=== PATIENT | female | born 1995 | race Caucasian/White ===

== ENCOUNTER 2017-07-31 07:51 | Emergency (ER) | payer BC, OTHER ==
[~2017-07-31] VITALS: Ht 177.8 cm; Wt 89.9 kg
[2017-07-31 07:55] VITALS: TEMP 36.6; O2SAT 94; Ht 177.8 cm; Wt 89.9 kg
[2017-07-31] MEDS ORDERED: GI COCKTAIL PO STA (08:10)
[2017-07-31] MEDS ORDERED: ONDANSETRON 4MG OD TAB PO STA (08:10)
--- NOTE | 2017-07-31 08:10 | EMERGENCY ROOM VISIT NOTE ---
History Report prepared by Veraibfelipe: Mabel Duvall Under the Supervision of: Dr. Avel Marquez M.D. 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 Positive diarrhea, lower abdominal pain. Negative back pain, recent sick contacts. The patient notes she ate aiyana lettuce in a salad this past weekend at [facility] and started vomiting shortly after eating the salad. She also reports she is currently going through a "hard break up" and has been very anxious and tearful ever since. She takes 20 mg of Celexa for a history of anxiety. Her LMP was 3 weeks ago and normal. She occasionally drinks alcohol and smokes cigarettes but denies any illegal drug use. She has never undergone abdominal surgery before. Source of History: patient Onset: 3 days SOUND RECORDING TECHNICIAN Position: abdomen Timing: other (persistent) Associated Symptoms: + abdominal pain, + diarrhea, No back pain Review of Systems See HPI for pertinent positives and negatives. A total of ten systems were reviewed and were otherwise negative. Past Medical & Surgical Medical Problems: (1) Anxiety (2) Hypothyroidism Surgical Problems: (1) History of wisdom tooth extraction Social History Smoking Status: Never Smoker Alcohol Use: occasionally Drug Use: none Marital Status: single Housing Status: lives with family Occupation Status: employed Current/Historical Medications Scheduled Citalopram Hydrobromide (Celexa), 1 TAB PO DAILY Ethinyl Estrad/Desogestrel (Apri), 1 TAB PO DAILY Levothyroxine Sodium (Synthroid), 20 MCG PO DAILY Allergies Coded Allergies: No Known Allergies (Unverified , 07/31/17) Physical Exam Vital Signs Date Time Temp Pulse Resp B/P (MAP) Pulse Ox O2 Delivery O2 Flow Rate FiO2 07/31/17 10:14 88 108/68 07/31/17 07:55 36.6 79 20 110/70 94 Room Air Physical Exam GENERAL: Awake, alert, tearful, well-appearing, NAD HENT: Normocephalic, atraumatic. EYES: Normal conjunctiva. Sclera non-icteric. PERRL. No anisocoria. NECK: Supple. No nuchal rigidity. FROM. RESPIRATORY: CTAB, no rhonchi, wheezing, crackles CARDIAC: RRR, no MRG ABDOMEN: Soft, NTND, BS+ Negative Edward's sign, negative obturator's, negative psoas, non-peritonitic abdomen. MSK: No chest wall TTP, no LE edema, no CVA TTP. NEURO: GCS 15, CN 2-12 intact, moves all 4s on command SKIN: No rash or jaundice noted. Medical Decision & Procedures Laboratory Results Test 07/31/17 09:25 Urine Color DK YELLOW Urine Appearance CLOUDY (CLEAR) Urine pH 5.0 (4.5-7.5) Urine Specific Art 1.033 (1.000-1.030) Urine Protein NEG (NEG) Urine Glucose (UA) NEG (NEG) Urine Ketones 2+ (NEG) Urine Occult Blood NEG (NEG) Urine Nitrite NEG (NEG) Urine Bilirubin NEG (NEG) Urine Urobilinogen NEG (NEG) Urine Leukocyte Esterase TRACE (NEG) Urine WBC (Auto) 5-10 /hpf (0-5) Urine RBC (Auto) 0-4 /hpf (0-4) Urine Hyaline Casts (Auto) 1-5 /lpf (0-5) Urine Epithelial Cells (Auto) >30 /lpf (0-5) Urine Bacteria (Auto) 1+ (NEG) Urine Renal Epithelial Cells 0-5 /lpf (0-5) Urine Crystals AMORPHOUS SEDIMENT (NONE Urine Pathogenic Casts /lpf (0) Urine Test NEG (NEG) Medications Administered Medications (Trade) Dose Ordered Sig/Kristin Route Start Time Stop Time Status Last Admin Dose Admin Ondansetron HCl (Zofran Odt) 4 mg NOW STAT PO 07/31/17 08:10 07/31/17 08:14 DC 07/31/17 08:23 4 MG Famotidine (Pepcid Tab) 20 mg NOW ONCE PO 07/31/17 08:15 07/31/17 08:16 DC 07/31/17 08:39 20 MG Al Hydroxide/Mg Hydroxide (Maalox Susp) 30 ml STK-MED ONCE .ROUTE 07/31/17 08:19 07/31/17 08:20 DC 07/31/17 08:38 30 ML Lidocaine HCl (Viscous Lidocaine 2% Soln) 20 ml STK-MED ONCE .ROUTE 07/31/17 08:19 07/31/17 08:20 DC 07/31/17 08:39 20 ML Sodium Chloride 500 ml @ 999 mls/hr Q31M STAT IV 07/31/17 09:22 07/31/17 09:52 DC 07/31/17 09:35 999 MLS/HR Metoclopramide HCl (Reglan Inj) 10 mg NOW STAT IV. 07/31/17 09:22 07/31/17 09:24 DC 07/31/17 09:36 10 MG ED Course 0802: The patient was evaluated in room B5. A complete history and physical exam was performed. 0830: I reevaluated the patient. I discussed her results and discharge instructions and she verbalized complete understanding and agreement. 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 Triage Nursing notes reviewed. The patient's presentation and history were concerning for vomiting. Etiologies such as gastroenteritis, food borne illness, infections, appendicitis , diverticulitis, inflammatory bowel disease, obstruction, GI bleed, biliary pathology, as well as others were entertained. Nursing notes reviewed. Ancillary studies and prior records reviewed. Patient was seen and evaluated the bedside. Patient did present with 3 days of nausea with associated vomiting. She states that she has been preoccupied she has been going through a tough relationship breakup. Patient denies any abdominal discomfort just nausea. Patient denies any trauma. Last menstrual period 3 weeks ago. Patient denies any dysuria. On exam the patient is well- appearing albeit tearful. The patient has no CVA TTP and has a nonfocal non- surgical abdomen. Patient has no discomfort whatsoever. The patient did have a urinalysis, urine test, the patient was given medications for symptom control. Patient still had some mild nausea. An IV line was started and the patient was given some additional Reglan. Urine test was negative. Patient's UA question for infection. Given the patient's nausea and vomiting will we will treat empirically. Patient was given Rocephin and given a prescription for Keflex. The patient did relate that she may have eaten some aiyana lettuce and in light of the recent E. coli outbreak the patient would likely be more sick and would likely have associated diarrhea. She has only had one episode of this. Patient has had a recent bowel movement less likely an obstruction. Patient has a nonsurgical abdomen and I do not believe that she requires blood work or further imaging at this time. She has had a recent bowel movement the patient denies any urinary symptoms. Furthermore, the patient is afebrile with stable vital signs. Patient was told to follow-up with her PCP if she does continue to be anxious. Patient was feeling improved upon reassessment. Tolerate p.o. without issue. She was given medications as an outpatient told to consider a bland diet. Patient was given strict follow-up, discharge, and return precautions. All questions were answered. Patient was deemed suitable for outpatient follow-up at this time. Patient agreed with the plan of care and was safely discharged home. Medication Reconcilliation Current Medication List: was personally reviewed by me Blood Pressure Screening Patient's blood pressure: Normal blood pressure Blood pressure disposition: Did not require urgent referral Impression Primary Impression: Nausea & vomiting Additional Impressions: Anxiety UTI (urinary tract infection) Scribe Attestation The scribe's documentation has been prepared under my direction and personally reviewed by me in its entirety. I confirm that the note above accurately reflects all work, treatment, procedures, and medical decision making performed by me. Departure Information Dispostion Home / Self-Care Prescriptions Cephalexin (KEFLEX) 500 Mg Cap 1 CAP PO BID for 7 Days, #14 CAP Prov: Avel Marquez M.D. 07/31/17 Patient Instructions ED Nausea Vomiting, My [facility] Additional Instructions Please return to the emergency department if you have worsening or recurrent symptoms not amenable to at-home treatment. Please call for a follow-up appointment with her primary care physician. Please take your medications as prescribed. If you have other concerns and/or complaints please feel free to also call your primary care physician's office or return the ED for further evaluation, management, and treatment. Please follow-up with your primary care physician for further discuss things like anxiety. You may take 800 mg Ibuprofen every 6 hours as needed for pain/fever with food unless told by your physician not to take NSAIDs. You may take tylenol 1000 mg every 6 hours as needed for pain/fever unless told by your physician to not take it or have liver problems. You may take motrin and tylenol separately or at the same time. Take your medications as prescribed. If taking an antibiotic consider taking a probiotic and/or eating yogurt, but at the least, please take with food as it can cause upset stomach. Consider a bland diet and avoid things like spicy, citrus, chocolate, peppermint. You have been examined and treated today on an emergency basis only. This is not a substitute for, or an effort to provide, complete comprehensive medical care. It is impossible to recognize and treat all injuries or illnesses in a single emergency department visit. It is therefore important that you follow up closely with [facility], your PCP, and/or your specialist(s). Call as soon as possible for an appointment. Thank you for your time and consideration. I look forward to speaking with you again soon. Please don't hesitate to call us if you have any questions. Problem Qualifiers Primary Impression: Nausea & vomiting Vomiting type: unspecified Vomiting Intractability: non-intractable Qualified Codes: R11.2 - Nausea with vomiting, unspecified Additional Impressions: UTI (urinary tract infection) Urinary tract infection type: acute cystitis Hematuria presence: without hematuria Qualified Codes: N30.00 - Acute cystitis without hematuria
[2017-07-31] MEDS ORDERED: FAMOTIDINE 20 MG TAB PO ONE (08:15)
[2017-07-31] MEDS ORDERED: LIDOCAINE HCL 2% VISC SOLN 20 ML UDC ONE (08:19)
[2017-07-31] MEDS ORDERED: ALUMINUM/MAGNESIUM SUSP 30 ML UDC ONE (08:19)
[2017-07-31] MEDS ORDERED: FAMO20TA9 PO (08:22)
[2017-07-31] MEDS ORDERED: ONDA4TAB46 PO (08:22)
[2017-07-31] MEDS ORDERED: CITA20TA9 PO (08:48)
[2017-07-31] MEDS ORDERED: LEVO25TA PO (08:48)
[2017-07-31] MEDS ORDERED: APRI28 PO (08:48)
[2017-07-31] MEDS ORDERED: METOCLOPRAMIDE HCL INJ 5 MG/ML 2 ML VIAL IV. STA (09:22)
[2017-07-31] MEDS ORDERED: SODIUM CHLORIDE 0.9% 500ML 500 ML IV STA (09:22)
[2017-07-31] MEDS ORDERED: CEFTRIAXONE SOD INJ 1 GM ADDVIAL IV STA (10:10)
[2017-07-31 10:14] VITALS: BP 108/68; PULSE 88
[2017-07-31] MEDS ORDERED: CEPH-571 PO (10:24)
== END 2017-07-31 10:57 | disposition home or self-care (01) ==
LOC: C.EDB 07:52
DX: N39.0 Urinary tract infection, site not specified (principal); F41.9 Anxiety disorder, unspecified; Z79.899 Other long term (current) drug therapy; Z72.0 Tobacco use; E03.9 Hypothyroidism, unspecified